=== PATIENT | female | born 1955 | race Caucasian/White ===

== ENCOUNTER 2025-02-16 18:48 | Emergency (ER) | payer OTHER, MEDICARE | END 2025-02-16 20:54 | disposition home or self-care (01) | LOC: NAV ERS 18:48 | DX: S63.601A Unspecified sprain of right thumb, initial encounter (principal); Z79.899 Other long term (current) drug therapy; V89.0XXA Person injured in unspecified motor-vehicle accident, nontraffic, initial encounter; Y92.481 Parking lot as the place of occurrence of the external cause | CPT/HCPCS: 29125; 99284 ==